=== PATIENT | female | born 1990 | race American Indian/Alaskan Native ===

== ENCOUNTER 2021-09-09 12:29 | Emergency (ER) | payer MEDICAID ==
--- NOTE | 2021-09-09 13:51 | Emergency Department Report ---
ED Extremity Problem HPI - General Chief complaint: Extremity Problem,Nontraumatic Stated complaint: BILAT LEG PAIN Time Seen by Provider: 09/09/21 13:26 Source: patient Mode of arrival: Ambulatory Limitations: No Limitations - History of Present Illness Initial comments: 30-year-old G3, P2 approximately 11-week female was sent down to the emergency department by her OB today because of painful nodules on both of her lower extremities. The patient states that these started about 2 weeks ago with little sore spots. They have grown and become more uncomfortable. She states that her OB saw her today and was concerned about blood clots. She does admit to some exertional dyspnea but denies any chest pain, hemoptysis, or palpitations. She does have some nausea and vomiting and hypersalivation, associated with her . She has no history of PE or DVT. MD Complaint: extremity pain, extremity swelling -: Gradual Location: bilateral lower extremity History of Same: No Radiation: none Consistency: constant Improves with: nothing Associated Symptoms: shortness of breath, other (Nausea and vomiting) - Related Data Previous Rx's Medication Instructions Recorded Last Taken Type Ibuprofen [Motrin 800 MG tab] 800 mg PO Q6H PRN #30 tablet 03/24/14 Unknown Rx oxyCODONE /ACETAMINOPHEN [Percocet 1 tab PO Q4HR #30 tablet 03/24/14 Unknown Rx 5/325 mg] Ondansetron [Zofran Odt] 4 mg PO Q8HR #20 tab.rapdis 09/09/21 Unknown Rx Allergies Allergy/AdvReac Type Severity Reaction Status Date / Time Penicillins Allergy Mild Hives Verified 09/09/21 12:34 ED Review of Systems ROS: Stated complaint: BILAT LEG PAIN Other details as noted in HPI Comment: All other systems reviewed and negative Respiratory: shortness of breath, SOB with exertion Cardiovascular: dyspnea on exertion Gastrointestinal: nausea, vomiting. denies: abdominal pain Skin: lesions (Nodules) ED Past Medical Hx - Past Medical History Hx Hypertension: No Hx Congestive Heart Failure: No Hx Diabetes: No Hx Deep Vein Thrombosis: No Hx GERD: Yes Hx Liver Disease: No Hx Renal Disease: No Hx Sickle Cell Disease: No Hx Seizures: No Hx Asthma: No Hx COPD: No Hx HIV: No - Surgical History Additional Surgical History: 2 C-sections - Social History Smoking Status: Never Smoker Substance Use Type: None - Medications Home Medications: Home Medications Medication Instructions Recorded Confirmed Last Taken Type Ibuprofen [Motrin 800 MG tab] 800 mg PO Q6H PRN #30 tablet 03/24/14 Unknown Rx oxyCODONE /ACETAMINOPHEN [Percocet 1 tab PO Q4HR #30 tablet 03/24/14 Unknown Rx 5/325 mg] Ondansetron [Zofran Odt] 4 mg PO Q8HR #20 tab.rapdis 09/09/21 Unknown Rx ED Physical Exam - General Limitations: No Limitations General appearance: alert, in no apparent distress, obese - Head Head exam: Present: atraumatic, normocephalic - Eye Eye exam: Present: normal appearance - ENT ENT exam: Present: mucous membranes moist - Neck Neck exam: Present: normal inspection - Respiratory Respiratory exam: Present: normal lung sounds bilaterally. Absent: respiratory distress - Cardiovascular Cardiovascular Exam: Present: regular rate, normal rhythm. Absent: systolic murmur, diastolic murmur, rubs, gallop - GI/Abdominal GI/Abdominal exam: Present: soft, normal bowel sounds - Extremities Exam Extremities exam: Present: normal inspection, tenderness - Back Exam Back exam: Present: normal inspection - Neurological Exam Neurological exam: Present: alert, oriented X3 - Psychiatric Psychiatric exam: Present: normal affect, normal mood - Skin Skin exam: Present: warm, dry, intact, normal color. Absent: rash ED Medical Decision Making - Lab Data Result diagrams: 09/09/21 13:49 09/09/21 13:49 - Radiology Data Radiology results: report reviewed, image reviewed No DVT - Medical Decision Making 30-year-old female was sent down to the emergency department by her OB for painful nodules on her lower extremities. There was concerns about possible DVT. She has a very clear case of erythema nodosum. I did get Dopplers of her bilateral lower extremities and they are negative. She is not diabetic and her white blood cell count is normal. I have encouraged her to do warm compresses. These should resolve on their own. Return precautions were given. Critical care attestation.: If time is entered above; I have spent that time in minutes in the direct care of this critically ill patient, excluding procedure time. ED Disposition Clinical Impression: Erythema nodosum Disposition: HOME / SELF CARE / HOMELESS Is pt being admited?: No Does the pt Need Aspirin: No Condition: Stable Instructions: Erythema Nodosum Prescriptions: Ondansetron [Zofran Odt] 4 mg PO Q8HR #20 tab.rapdis Referrals: [facility] [Provider Group] - 3-5 Days [facility], [Primary Care Provider] - 3-5 Days
[2021-09-09] MEDS ORDERED: ONDANSETRON 4 MG ODT TAB PO ONE (14:07)
[2021-09-09 14:15] LABS: Hemoglobin 13.5 gm/dl (10.1-14.3); Mean Corpuscular HGB Conc 33 % (30-34); Mean Corpuscular Volume 87 fl (79-97); Platelet Count 264 K/mm3 (140-440); Red Blood Count 4.72 M/mm3 (3.65-5.03); Red Cell Distribution Width 13.2 % (13.2-15.2)
[2021-09-09 14:32] LABS: Blood Urea Nitrogen 7 mg/dL (7-17); Calcium 9.5 mg/dL (8.4-10.2); Hemolysis Index 4
[2021-09-09 14:33] LABS: BUN/Creatinine Ratio 10
--- NOTE | 2021-09-09 14:38 | Vascular Lab Report ---
DUPLEX DOPPLER LOWER EXTREMITY VEINS, BILATERAL INDICATION: LE painful nodules, . TECHNIQUE: Duplex doppler imaging was performed through the veins of both lower extremities using venous sivan yvette and other maneuvers. COMPARISON: No relevant prior imaging study available. FINDINGS: Right Common femoral vein: Negative. Right Superficial femoral vein: Negative. Right Popliteal vein: Negative. Right Calf veins: Negative. Left Common femoral vein: Negative. Left Superficial femoral vein: Negative. Left Popliteal vein: Negative. Left Calf veins: Negative. Additional findings: None.. IMPRESSION: 1. No sonographic evidence for DVT in either lower extremity. Signer Name: Jose Multani MD Signed: 09/09/2021 2:34 PM Workstation Name: [id number]
== END 2021-09-09 16:02 | disposition home or self-care (01) ==
LOC: ED 12:29
DX: O26.891 Other specified pregnancy related conditions, first trimester (principal); L52 Erythema nodosum; Z88.0 Allergy status to penicillin
CPT/HCPCS: 36415; 80048; 85027; 93970; 99284; J3490; Q0162